=== PATIENT | female | born 1990 | race Caucasian/White ===

== ENCOUNTER 2016-06-27 13:19 | Emergency (ER) | payer MEDICARE, MEDICAID ==
--- NOTE | 2016-06-27 13:25 | ER Document Report ---
ED Medical Screen (RME) - General Stated Complaint: SUICIDAL IDEATIONS Notes: Pt presents with her take off worker for punching herself yesterday in the abdomen. Pt reports she was feeling sad. Pt needs evaluation for possible placement to [facility] with her take off worker. TRAVEL OUTSIDE OF THE [place] IN LAST 30 DAYS: No - Related Data Allergies/Adverse Reactions: No Known Allergies Allergy (Unverified 02/03/16 05:05) Past Medical History Renal/ Medical History: Reports: Hx Ovarian Cysts Psychiatric Medical History: Reports: Hx Bipolar Disorder, Hx Depression Past Surgical History: Reports: Hx Gynecologic Surgery - Laparoscopic surgery for ovarian cyst
[2016-06-27 13:56] LABS: ABSOLUTE EOSINOPHILS # (AUTO) 0.1 10^3/uL (0.0-0.6); ABSOLUTE LYMPHOCYTES (AUTO) 2.1 10^3/uL (0.5-4.7); ABSOLUTE MONOCYTES (AUTO) 0.4 10^3/uL (0.1-1.4); ABSOLUTE NEUT (AUTO) 5.4 10^3/uL (1.7-8.2); BASOPHILS % (AUTO) 0.6 % (0-2); EOSINOPHILS % (AUTO) 0.7 % (0-6); HEMATOCRIT 42.1 % (36.0-47.0); HEMOGLOBIN 13.5 g/dL (12.0-15.5); HGB HCT DIFFERENCE -1.6; LYMPHOCYTES % (AUTO) 26.1 % (13-45); MEAN CORPUSCULAR HEMOGLOBIN 29.5 pg (27.0-33.4); MEAN CORPUSCULAR HGB CONC 32.2 g/dL (32.0-36.0); MEAN CORPUSCULAR VOLUME 92 fl (80-97); MONOCYTES % (AUTO) 4.8 % (3-13); RED BLOOD COUNT 4.59 10^6/uL (3.72-5.28); RED CELL DISTRIBUTION WIDTH 12.9 % (11.5-14.0); SEGMENTED NEUTROPHILS % (AUTO) 67.8 % (42-78)
[2016-06-27 14:09] LABS: ALANINE AMINOTRANSFERASE 20 U/L (9-52); ALBUMIN 3.9 g/dL (3.5-5.0); ALKALINE PHOSPHATASE 67 U/L (38-126); ANION GAP 10 (5-19); ASPARTATE AMINO TRANSFERASE 20 U/L (14-36); BILIRUBIN,TOTAL 0.3 mg/dL (0.2-1.3); BLOOD UREA NITROGEN 10 mg/dL (7-20); CALCIUM 9.8 mg/dL (8.4-10.2); CARBON DIOXIDE 29 mmol/L (22-30); CHLORIDE 102 mmol/L (98-107); CREATININE RESULT 0.71 mg/dL (0.52-1.25); GLUCOSE 88 mg/dL (75-110); POTASSIUM 4.2 mmol/L (3.6-5.0); SODIUM 140.7 mmol/L (137-145); TOTAL PROTEIN 6.7 g/dL (6.3-8.2)
[2016-06-27 14:14] LABS: ALCOHOL < 10 mg/dL (NONE DETECTED)
--- NOTE | 2016-06-27 14:14 | ER Document Report ---
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 IN LAST 30 DAYS: No - HPI Patient complains to provider of: Self injury Associated symptoms: Other - See above <HIMANSHU NUNEZ - Last Filed: 06/27/16 14:16> <AMADA TEMPLE - Last Filed: 06/27/16 15:08> - General Chief Complaint: Psych Problem Stated Complaint: self harm Notes: Patient is a 25 year old female, with a past medical history including depression and bipolar disorder, who presents to the emergency department with her case planner for self harm. Patient reports that she was feeling sad yesterday and frustrated so she punched herself in the sides so that she wouldn' t punch anything else. Patient denies suicidal ideation. Patient reports that the incident did make her feel better and that today she is feeling normal. ( HIMANSHU NUNEZ) - Related Data Allergies/Adverse Reactions: No Known Allergies Allergy (Verified 06/27/16 13:27) Past Medical History - General Information source: Patient - Social History Smoking Status: Never Smoker Chew tobacco use (# tins/day): No Frequency of alcohol use: None Drug Abuse: None Family History: Reviewed & Not Pertinent Patient has suicidal ideation: No Patient has homicidal ideation: No Renal/ Medical History: Reports: Hx Ovarian Cysts Psychiatric Medical History: Reports: Hx Bipolar Disorder, Hx Depression Past Surgical History: Reports: Hx Gynecologic Surgery - Laparoscopic surgery for ovarian cyst <HIMANSHU NUNEZ - Last Filed: 06/27/16 14:16> Review of Systems - Review of Systems Constitutional: No symptoms reported EENT: No symptoms reported Cardiovascular: No symptoms reported Respiratory: No symptoms reported Gastrointestinal: No symptoms reported Genitourinary: No symptoms reported Female Genitourinary: No symptoms reported Musculoskeletal: No symptoms reported Skin: See HPI, Other - Bruising on sides Hematologic/Lymphatic: No symptoms reported Neurological/Psychological: See HPI, Other - self harm. denies: Suicidal ideation -: Yes All other systems reviewed and negative <HIMANSHU NUNEZ - Last Filed: 06/27/16 14:16> Physical Exam - Vital signs Interpretation: Normal - General General appearance: Appears well, Alert - HEENT Head: Normocephalic, Atraumatic - Respiratory Respiratory status: No respiratory distress Chest status: Nontender Breath sounds: Normal Chest palpation: Normal - Cardiovascular Rhythm: Regular Heart sounds: Normal auscultation Murmur: No - Abdominal Inspection: Obese Distension: No distension Bowel sounds: Normal Tenderness: Nontender Organomegaly: No organomegaly - Extremities General upper extremity: Normal inspection General lower extremity: Normal inspection - Neurological Neuro grossly intact: Yes Cognition: Normal Orientation: AAOx4 Nirav Coma Scale Eye Opening: Spontaneous Gordon Coma Scale Verbal: Oriented Nirav Coma Scale Motor: Obeys Commands Nirav Coma Scale Total: 15 Speech: Normal - Psychological Associated symptoms: Normal affect, Normal mood - Skin Skin Temperature: Warm Skin Moisture: Dry Skin irregularity: other - Bruising on right side about 8cm in diameter, similar buising to left side <HIMANSHU NUNEZ - Last Filed: 06/27/16 14:16> Course - Laboratory Result Diagrams: 06/27/16 13:35 06/27/16 13:35 <HIMANSHU NUNEZ - Last Filed: 06/27/16 14:16> - Laboratory Result Diagrams: 06/27/16 13:35 06/27/16 13:35 - EKG Interpretation by Ms EKG shows normal: Sinus rhythm, Murdock, Intervals, QRS Complexes, ST-T Waves Rate: Normal - 88 Rhythm: NSR When compared to previous EKG there are: No significant change <AMADA TEMPLE - Last Filed: 06/27/16 15:08> - Re-evaluation Re-evalutation: 06/27/16 14:40 The patient repeatedly states that she is not suicidal. She states she actually feels much better today than yesterday when she was frustrated and took out her frustrations by punching herself in the sides. She states she did this because she did not want to damage any one else's property. (AMADA TEMPLE ) - Laboratory Laboratory results interpreted by sc: 06/27/16 06/27/16 13:35 14:00 Urine Blood SMALL H Salicylates < 1.0 L Acetaminophen < 10 L (AMADA TEMPLE) Discharge <HIMANSHU NUNEZ - Last Filed: 06/27/16 14:16> <AMADA TEMPLE - Last Filed: 06/27/16 15:08> - Discharge Clinical Impression: Self-inflicted injury Condition: Stable Disposition: HOME, SELF-CARE Additional Instructions: FOLLOW UP WITH YOUR PROVIDERS AT [facility]. Referrals: GARETH JUAREZ PA-C [Primary Care Provider] - Follow up as needed Scribe Attestation: 06/27/16 15:07 I personally performed the services described in the documentation, reviewed and edited the documentation which was dictated to the scribe in my presence, and it accurately records my words and actions. (AMADA TEMPLE) Scribe Documentation <HIMANSHU NUNEZ - Last Filed: 06/27/16 14:16> <AMADA TEMPLE - Last Filed: 06/27/16 15:08> - Scribe Written by Scribe:: AMADA TEMPLE MD, SCRIBE 06/27/16 0487 Acting as scribe for: Dr. Temple (HIMANSHU NUNZE) (AMADA TEMPLE)
--- NOTE | 2016-06-27 14:31 | PSYCHOLOGICAL NOTE ---
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 Pt reports she was feeling sad. Pt needs evaluation for possible placement to [facility]. Patient states that she was upset. She states that she was in her room when this occurred and that she "wasn't trying to kill herself." She continued to disclose that she could have used her coping skills however because of the time and having little in her room she only was able to do some coloring. She continues to state that she did color however it did not work. Patient states the reason she was upset was because she supposed to move [facility] and that she is a little sad and has anxiety about the move. Patient confirms she receives therapeutic services and med management through [facility]. Patient states that the medication she currently takes has given her stability. She states it is helped and that she has learned coping skills. She states she uses them however "right then I didn't." Patient denies suicidal homicidal ideation. Clinician spoke to group director Carol Pelayo, of [facility]. She states that the patient has a history of self- harm and cutting. She continued to state that the last 60 days she has been good however recently the patient was told the penitentiary she lives and will be closing and needs to move to a new penitentiary. The patient has not taken this well. Carol continue to disclose that today is the last day that the penitentiary is open and the new penitentiary will not accept the patient unless she has received services through the hospital for better coping skills. She states that the current episode occurred 2 evenings ago at 2:30 AM where she heard the patient's scream, upon arriving into the room patient stated that she fell. She continued to disclose that yesterday evening she saw the bruises on the patient, the patient then disclosed she punched herself. Carol feels this is not a possibility because of "the type of bruises." She continues to state that patient receives psychiatric services through [facility], has mild intellectual disability, bipolar, and borderline personality disorder. She states that the goal is for the patient to receive new coping skills so she can go to new penitentiary. Patient is alert and orientated to person place time and circumstance. Mood is euthymic with congruent affect; clinician notes patient's hands are shaking. Patient denies suicidal homicidal ideation. Clinician notes patient has history of maladaptive coping skills and patient self reports using maladaptive coping skill previous evening in an attempt to cope with upcoming change. Patient denies auditory or visual hallucinations; no delusions are noted. Patient is not observed to be identifying to any internal stimuli. Thought process is logical, organized and linear. Conversational speech was within normal rate, tone and prosody. Eye contact was well maintained. Intellectual abilities appear to be low average range. Attention and concentration were good. Insight, judgment, impulse control are fair. 317 (F 70) intellectual disability; mild per history identified by group director 296.80 (F 31.9 ) unspecified Bipolar per history identified by group director 301.83 (F 60.3 ) Borderline personality disorder per history identified by group director Impression/ Plan: Patient is psychiatrically cleared for discharge, she does not meet criteria for IVC per [place] GS 122C. patient denies suicidal homicidal ideation. She discloses use of maladaptive coping skill however was able to process with clinician thoughts and reasoning behind this use. Patient identifies upcoming move to new penitentiary has made her little sad and anxious. Patient is established with mental health provider [facility]. Patient is psychiatrically cleared for discharge. Dr. Pichardo was consulted on this patient; attending physician is in agreement with recommendations and disposition.
[2016-06-27 14:52] LABS: APPEARANCE,URINE CLEAR; BILIRUBIN,URINE NEGATIVE (NEGATIVE); GLUCOSE, URINE NEGATIVE (NEGATIVE); KETONES,URINE NEGATIVE (NEGATIVE); LEUKOCYTE ESTERASE,URINE NEGATIVE (NEGATIVE); NITRITE,URINE NEGATIVE (NEGATIVE); PROTEIN,URINE NEGATIVE (NEGATIVE); URINE SPECIFIC GRAVITY 1.012; UROBILINOGEN,URINE NEGATIVE mg/dL (<2.0)
[2016-06-27 15:06] LABS: URINE BARBITURATES SCREEN NEGATIVE; URINE METHADONE SCREEN NEGATIVE; URINE PHENCYCLIDINE SCREEN NEGATIVE
--- NOTE | 2016-06-27 15:08 | EKG REPORT ---
SEVERITY:- ABNORMAL ECG - SINUS RHYTHM PROBABLE LEFT ATRIAL ABNORMALITY BORDERLINE Q WAVES IN INFERIOR LEADS INFERIOR Q WAVES, PROBABLY NORMAL VARIATION : Confirmed by: Sebastian Mcdonald 27-Jun-2016 15:07:21
== END 2016-06-27 15:20 | disposition home or self-care (01) ==
LOC: ER 13:19
DX: S36.30XA Unspecified injury of stomach, initial encounter (principal); F32.9 Major depressive disorder, single episode, unspecified; F31.9 Bipolar disorder, unspecified; Y33.XXXA Other specified events, undetermined intent, initial encounter
CPT/HCPCS: 36415; 80053; 80307; 81001; 84703; 85025; 93005; 93010; 99285